=== PATIENT | male | born 2000 | race Two or more races ===

== ENCOUNTER 2020-08-30 12:17 | Outpatient (REF) | payer MEDICAID, SELFPAY | END 2020-08-30 12:18 | disposition home or self-care (01) | LOC: HO.LAB 12:17 | PROVIDERS: Visit Provider Internal Medicine | DX: Z20.828 Contact with and (suspected) exposure to other viral communicable diseases (principal) | CPT/HCPCS: 87635 ==

== ENCOUNTER 2021-11-28 07:40 | Outpatient (REF) | payer MEDICAID, SELFPAY ==
[2021-11-28 08:15] LABS: Binax Internal Control QC Valid; Binax Now Covid-19 Ag Negative (Negative)
== END 2021-11-28 07:41 | disposition home or self-care (01) ==
LOC: HO.LAB 07:40
PROVIDERS: Visit Provider Internal Medicine
DX: Z20.822 Contact with and (suspected) exposure to COVID-19 (principal)
CPT/HCPCS: C9803

== ENCOUNTER 2022-03-22 11:32 | Emergency (ER) | payer OTHER, SELFPAY ==
[2022-03-22 12:49] VITALS: BP 138/85; PULSE 83; RESP 18; TEMP 36.5; O2SAT 98; BMI 21.1
[2022-03-22 13:59] LABS: COVID-19 Test Negative (Negative); IDNOW Serial# 16C4AD1C; Influenza A Positive (Negative); Influenza B2 Negative (Negative)
--- NOTE | 2022-03-22 15:34 | ED.URI ---
HPI - URI/Sore Throat General Chief Complaint: Upper Respiratory Symptoms Stated Complaint: FLU SYMPTONS Time Seen by Provider: 03/22/22 15:33 Source: patient Mode of arrival: ambulatory Limitations: no limitations History of Present Illness HPI Narrative: 21 y/o male presents to the ER with 3 days of nausea, vomiting, body aches, decreased PO intake and headaches. He also reports fevers at home. His girlfriend and baby at home have also been sick. He vomited once yesterday, none today, he is tolerating p.o.. He reports body aches and pain all over his body when he went to get out of bed this morning. He denies any shortness of breath or chest pain. No abdominal pain. MD elicited complaint: fever and other (N/V and body aches) Onset (ago): day(s) (3) Consistency: constant Description of mucous: clear Able to tolerate fluids by mouth: Yes Exacerbating factors: nothing Relieving factors: nothing Associated symptoms: fever, chills, myalgias, headache, nasal congestion, cough, nausea and vomiting Treatments prior to arrival: none Related Data Allergies Allergy/AdvReac Type Severity Reaction Status Date / Time amoxicillin [AMOXICILLIN] Allergy Unknown RASH, hives Unverified 07/25/20 16:53 Review of Systems Review of Systems: Constitutional: + Fever, No Chills ENT/Mouth: + sore throat, No Rhinorrhea, No Swallowing Difficulty Cardiovascular: No Chest Pain, No SOB Respiratory: No Cough, No Sputum, No Wheezing, No dyspnea Gastrointestinal: + Nausea, + Vomiting, No Diarrhea, No abdominal Pain Musculoskeletal: No joint pain, + Myalgias Skin: No Skin Lesions, No rash Neuro: No Weakness, No Numbness, No Dizziness, + Headache Heme/Lymph: No Bruising, No Lymphadenopathy PMFSH Social History Social History Advance Directives: No Advance Directives Information Provided: No Physical Exam Vital Signs: Vital Signs: Last Vital Signs Temp 97.7 F 03/22/22 12:49 Pulse 83 03/22/22 12:49 Resp 18 03/22/22 12:49 BP 138/85 03/22/22 12:49 Pulse Ox 98 03/22/22 12:49 BMI result Body Mass Index 21.1 Appearance: Alert. Oriented X3. No acute distress. Eyes: Pupils equal, round and reactive to light. ENT: Pharynx normal. Tonsils are normal in appearance without exudate or swelling. Neck: Normal inspection. Neck supple. CVS: Normal heart rate and rhythm. Pulses normal. Respiratory: No respiratory distress. Breath sounds normal. Abdomen: Soft and nontender. +BS x4 Skin: Skin warm and dry. Normal skin color. Normal skin turgor. No rashes. Extremities: No lower extremity edema. Neuro: Oriented X 3. Grossly normal, nonfocal Course Course Course Narrative: 21 y/o male presents to the ER with 3 days of feeling unwell. Body aches, intermittent fevers, s/p N/V yesterday now tolerating PO. VS normal and exam is unremarkable. Influenza A+. Does not qualify for tamiflu. Discussed supportive care and return precautions. Stable to d/c. MDM - URI/Sore Throat Lab Data Labs: Lab Results 03/22/22 03/22/22 Range/Units 13:15 13:15 COVID-19 ([facility]) Negative (Negative) COVID-19 Clin Com See Note Influenza Type A ([facility]ARMIN) Positive A (Negative) Influenza Type B (SHARMIN) Negative (Negative) Influenza A & B Note See Note Critical Care Time Critical Care Time Critical Care Time: No Discharge Plan Discharge Clinical Impression: Influenza Patient Disposition: Home, Self-Care Instructions: Influenza (DC) Additional Instructions: You were found to be Influenza A POSITIVE today. Your exam and oxygen levels were normal. Treatment is supportive care Rest. Drink plenty of fluids. Do not go out in public while you are not feeling well. Take over the counter cold/flu medications as needed for your symptoms. Take Tylenol and/or Motrin as needed for fevers and body aches. Start Mucinex 1200 mg two times per day. Follow up with your doctor as needed. If you develop new or worsening symptoms call 911 or come back to the ER for further evaluation. Stand Alone Forms: Work/School Release Interventions: ED Discharge Assessment Last Done: 03/22/22 15:56 Discharge Date/Time: 03/22/22 15:56
== END 2022-03-22 15:56 | disposition home or self-care (01) ==
PROVIDERS: Emergency Provider Emergency Medicine; PCP Nurse Practitioner Primary Care
DX: J10.1 Influenza due to other identified influenza virus with other respiratory manifestations (principal); Z20.822 Contact with and (suspected) exposure to COVID-19
CPT/HCPCS: 87502; 87635; 99283

== ENCOUNTER 2023-02-10 14:39 | Emergency (ER) | payer OTHER, SELFPAY ==
[2023-02-10 15:22] VITALS: BP 118/67; PULSE 79; RESP 18; TEMP 36.6; O2SAT 99; BMI 21.6
--- NOTE | 2023-02-10 15:22 | ED.BACK ---
HPI - Back Pain/Injury General Chief Complaint: Back Pain/Injury Stated Complaint: lower back pain Time Seen by Provider: 02/10/23 15:31 Source: patient Mode of arrival: ambulatory Limitations: no limitations History of Present Illness HPI Narrative: 22 y/o male presents to the ER for evaluation of lower back pain that that started yesterday after work. He works at [employer], cannot recall lifting anything heavy or doing anything out of the ordinary. He states the pain is sharp, 8/10 and worse with movements. It is across his entire low back, no radiation of the pain. No LE weakness, numbness or tingling. No urinary symptoms or incontinence. No bowel issues. No fever or chills and no hx IVDA. He has not taken any medications for the pain. MD elicited complaint: back pain Timing: constant Severity: severe Pain scale (0-10): 8 Similar Symptoms Previously: No Quality: sharp Location: right lower back and left lower back Radiation: none Exacerbating factors: movement Relieving factors: immobilization and supine Context: unknown Associated symptoms: denies other symptoms Work related injury: Yes Related Data Previous Rx's Medication Instructions Recorded cyclobenzaprine 10 mg tablet 10 mg PO TID PRN muscle spasm #14 02/10/23 tabs ibuprofen 600 mg tablet 600 mg PO Q8H PRN pain #14 tabs 02/10/23 lidocaine 5 % topical patch 1 patch topical DAILY #15 ea 02/10/23 Allergies Allergy/AdvReac Type Severity Reaction Status Date / Time amoxicillin [AMOXICILLIN] Allergy Unknown RASH, hives Verified 02/10/23 15:25 Review of Systems Review of Systems: Yes all other systems are reviewed and are negative Physical Exam Vital Signs: Vital Signs: Last Vital Signs Temp 98 F 02/10/23 15:22 Pulse 79 02/10/23 15:22 Resp 18 02/10/23 15:22 BP 118/67 02/10/23 15:22 Pulse Ox 99 02/10/23 15:22 O2 Del Method Room Air 02/10/23 15:22 BMI result Body Mass Index 21.6 Appearance: Alert. Oriented X3. No acute distress. HEENT: normal inspection CVS: Normal heart rate and rhythm. Pulses normal. Respiratory: No respiratory distress. Skin: Skin warm and dry. Normal skin color. Normal skin turgor. No rashes. Back: normal inspection. tenderness of the bilateral soft tissues of the lumbar area, no midline tenderness. no CVA tenderness. limited rotation of the spine due to pain Extremities: normal inspection and normal ROM x4 Neuro: Oriented X 3. No motor deficit. No sensory deficit. Steady gait Medications Administered Discontinued Medications Generic Name Dose Route Start Last Admin Trade Name Fanny PRN Reason Stop Dose Admin Acetaminophen 975 mg 02/10/23 15:26 02/10/23 15:45 Acetaminophen 325 Mg Tablet PO 02/10/23 15:27 975 mg ONCE ONE Administration Ketorolac Tromethamine 30 mg 02/10/23 15:26 02/10/23 15:46 Ketorolac Tromethamine 30 Mg/Ml Vial IM 02/10/23 15:27 30 mg ONCE ONE Administration Lidocaine 1 patch 02/10/23 15:26 02/10/23 15:46 Lidocaine 4 % Patch Adh..Patch TRANSDERMA 02/10/23 15:27 1 patch ONCE ONE Administration Protocol Medical Decision Making Medical Decision Making MDM Narrative: 22 yo male presenting to the ER for evaluation of low back pain, nontraumatic in nature. Exam c/w soft tissue tenderness only. most likely muscle strain and spasm. no red flag symptoms of low back pain. will treat with muscle relaxer, NSAID and lidoderm. stable for d/c home. Differential Diagnosis Differential Diagnoses: The differential diagnosis associated with the presentation includes Inflammatory disorders, malignancy, trauma, osteoporosis, nerve root compression, radiculopathy, plexopathy, degenerative disc disease, disc herniation, spinal stenosis, sacroiliac joint dysfunction, facet joint injury, and less likely infection?like abscess or diskitis External Record Review External record reviewed: Prior outpatient labs Tests considered The following testing was considered but not selected: XR considered but not performed given no trauma and no midline tenderness Prescription Management I considered prescription management with: Pain Medication Critical Care Time Critical Care Time Critical Care Time: No Discharge Plan Discharge Clinical Impression: Low back pain Patient Disposition: Home, Self-Care Instructions: Low Back Strain (ED), Lower Back Exercises (ED) Additional Instructions: Your pain is most likely due to muscle strain and spasm. No bending, lifting or twisting. Use ice several times per day for 20 minutes at a time for the next 48 hours and then change to heat. Take medications as prescribed to help with pain and discomfort. Follow up with your Primary Care Doctor this week. If your pain worsens, if you develop new numbness, tingling, weakness, loss of function or incontinence call 911 or come back to the ER right away for evaluation. Prescriptions: New cyclobenzaprine 10 mg tablet 10 mg PO TID PRN (Reason: muscle spasm) Qty: 14 0RF ibuprofen 600 mg tablet 600 mg PO Q8H PRN (Reason: pain) Qty: 14 0RF lidocaine 5 % adhesive patch,medicated 1 patch topical DAILY Qty: 15 0RF Rx Instructions: leave on most painful area for up to 12 hrs Referrals: Patito Matias, PROOFREADER [Primary Care Provider] - (low back pain) Stand Alone Forms: Work/School Release
[2023-02-10] MEDS: Acetaminophen 325 MG TABLET 975 MG PO (15:45)
[2023-02-10] MEDS: Lidocaine 4 % Patch ADH..PATCH 1 PATCH TRANSDERMA (15:46)
[2023-02-10] MEDS: Ketorolac Tromethamine 30 MG/ML VIAL IM (15:46)
== END 2023-02-10 16:16 | disposition home or self-care (01) ==
PROVIDERS: Emergency Provider Emergency Medicine Emergency Medical Services; PCP Nurse Practitioner Primary Care
DX: Z04.2 Encounter for examination and observation following work accident (principal); M54.50 Low back pain, unspecified
CPT/HCPCS: 96372; 99283; 99284; J1885

== ENCOUNTER 2023-04-30 13:45 | Emergency (ER) | payer SELFPAY ==
--- NOTE | 2023-04-30 | ECG_ITS ---
Test Reason : cp Blood Pressure : / mmHG Vent. Rate : 075 BPM Atrial Rate : 075 BPM P-R Int : 164 ms QRS Dur : 100 ms QT Int : 388 ms P-R-T Axes : 077 -85 067 degrees QTc Int : 433 ms Normal sinus rhythm Left axis deviation Incomplete right bundle branch block Abnormal ECG When compared with ECG of 13-AUG-2019 07:04, No significant change was found Referred By: Generic ED Physician Electronically Signed By:RONN WILL
--- NOTE | ~2023-04-30 | XR_ITS ---
EXAMINATION: XR CHEST CLINICAL INFORMATION: Left chest pain. COMPARISON: August 14, 2019. TECHNIQUE: 2 views of the chest were obtained. FINDINGS: No significant abnormality is noted involving the heart, lungs, mediastinum, bony thorax or soft tissues. XR/XR chest 2V IMPRESSION: Normal chest PA and lateral.
[2023-04-30 14:03] VITALS: BP 126/73; PULSE 61; RESP 18; TEMP 37.2; O2SAT 99; BMI 21.1
--- NOTE | 2023-04-30 14:04 | ED_ITS ---
HPI - General Adult General Chief complaint: Chest Pain Stated complaint: chest pain Time Seen by Provider: 04/30/23 15:18 Source: patient Mode of arrival: ambulatory Limitations: no limitations History of Present Illness HPI narrative: 22 y male with history of asthma here with complaints of chest pain x 3 days wi th radiation to left shoulder and down left arm. No shortness of breath, nausea, vomiting, dizziness. + headache. Pain is constant, not exertional, not pleuritic. No leg swelling or leg pain. No recent travel or recent surgery. No history of DVT or PE Related Data Previous Rx's Medication Instructions Recorded cyclobenzaprine 10 mg tablet 10 mg PO TID PRN muscle spasm #14 02/10/23 tabs ibuprofen 600 mg tablet 600 mg PO Q8H PRN pain #14 tabs 02/10/23 lidocaine 5 % topical patch 1 patch topical DAILY #15 ea 02/10/23 Allergies Allergy/AdvReac Type Severity Reaction Status Date / Time amoxicillin [AMOXICILLIN] Allergy Unknown RASH, hives Verified 04/30/23 14:06 Review of Systems Review of Systems: Yes all other systems are reviewed and are negative Constitutional: Constitutional: Reports no additional constitutional complaints, Denies body ache(s), Denies chills, Denies fever(s), Denies headache(s) and Denies weakness Eyes: Eyes: Reports no additional eye complaints and Denies change in vision ENT: Reports system reviewed and no additional complaints, except as documented, Denies dizziness, Denies headache(s), Denies nasal congestion, Denies nasal discharge and Denies neck pain Cardiovascular: Cardiovascular: Reports no additional cardiovascular complaints, Reports chest pain, Denies leg edema and Denies dyspnea Respiratory: Respiratory: Reports no additional respiratory complaints, Denies cough and Denies dyspnea Gastrointestinal: Gastrointestinal: Reports no additional gastrointestinal co mplaints, Denies abdominal pain, Denies diarrhea, Denies nausea and Denies vomiting Genitourinary: Genitourinary: Denies urinary incontinence Musculoskeletal: Musculoskeletal: Reports no additional musculoskeletal complaints, Denies back pain, Denies arthralgias, Denies joint swelling, Denies neck pain, Denies numbness and Denies tingling Integumentary/Breasts: Skin/Breast: Reports system reviewed and no additional complaints, except as docu and Denies rash Neurologic: Reports system reviewed and no additional complaints, except as documented, Denies dizziness, Denies headache(s), Denies numbness, Denies tingling and Denies weakness PMFSH Past Medical History Attestation statement: The following information was validated with the patient. Source: old records reviewed and nursing notes reviewed Social History Social History Alcohol intake: never Smoked in Last 30 Days: No Use of substances other than those prescribed or required for medical reasons: No Advance Directives: No Advance Directives Information Provided: No Physical Exam ED Vital Signs: Vital Signs - 24 hr 04/30/23 14:03 04/30/23 15:21 Temperature 98.9 F 98.7 F Pulse Rate 61 53 Respiratory Rate 18 16 Blood Pressure 126/73 120/63 Pulse Oximetry 99 99 Oxygen Delivery Method Room Air Room Air BMI result Body Mass Index 21.1 Const General: cooperative, healthy appearing, comfortable and no acute distress Orientation/consciousness: patient oriented x3 Limitations: no limitations HENMT Head: Yes normal to inspection Ears: hearing grossly normal bilaterally Eyes General: appearance normal, both eyes and all related structures Pupils: Equal, round and reactive pupils present Neck Neck: Yes normal visual inspection Chest Chest palpation & inspection: normal inspection of the chest Resp Effort & Inspection: normal respiratory effort Auscultation: clear to auscultation bilaterally Cardio Rate: regular rate Rhythm: regular rhythm Peripheral pulses: Peripheral pulses 2+ throughout GI Inspection: Yes normal to inspection Palpation (GI): Soft to palpation and nontender Back/Spine/Pelvis Thoracic/Lumbar Spine: thoracic and lumbar spine normal to inspection Skin General skin exam: no rashes or lesions noted Neuro General: patient oriented x3 and moves all extremities Cranial nerves: Yes Equal, round and reactive pupils present Cognition (Neuro): normal cognition Extrem General: Yes normal to inspection, Yes no pedal edema and Yes no calf tenderness Course Course Course Narrative: RME performed by Paula Junior PA-C. Patient is a 22 year old assigned male at presenting to the emergency department with left sided chest pain. Labs and imaging ordered. Patient placed back in the waiting room pending room availability and results. Reevaluation(s) Reevaluation #1: Labs are unremarkable. EKG shows no ischemic changes. Chest x-ray shows no acute finding. Plan for discharge home with follow-up with patient's primary care outpatient. Reviewed worrisome signs and symptoms of when to return to the emergency room. Comfortable plan for discharge home. Medications Administered Discontinued Medications Generic Name Dose Route Start Last Admin Trade Name Fanny PRN Reason Stop Dose Admin Ibuprofen 600 mg 04/30/23 15:54 04/30/23 16:00 Ibuprofen 600 Mg Tablet PO 04/30/23 15:55 600 mg ONCE ONE Administration Medical Decision Making Medical Decision Making [facility] Narrative: This is a 22-year-old male with history of asthma who presents the ER with 3 days of chest pain which radiates to the left shoulder and down the left arm which is constant in nature, not exertional, not pleuritic with no other associated symptoms. Exam is benign Will check labs, EKG, chest X-ray Differential Diagnosis Differential Diagnoses: The differential diagnosis associated with the presentation includes ACS-low concern for ACS with symptoms for 3 days with a negative troponin and EKG. Heart score 0 PE-low concern for PE. Perc is 0 GERD Anxiety Pneumothorax Aortic dissection-low concern for dissection with gradual onset of symptoms over the last 3 days Lab Data [facility] Lab Attestation statement: I reviewed the patient's lab results. 04/30/23 15:08 04/30/23 15:08 Labs: Lab Results 04/30/23 04/30/23 04/30/23 Range/Units 15:08 15:08 15:08 WBC 7.0 (4.8-10.8) X10*3/uL RBC 5.42 (4.60-5.80) X10*6/uL Hgb 16.6 (14.0-18.0) g/dl Hct 48.0 (42.0-52.0) % MCV 88.6 (80.0-98.0) fL MCH 30.6 (27.0-33.0) pg MCHC 34.6 (31.0-36.0) g/dl RDW 11.9 (11.0-16.0) % Plt Count 225 (160-400) X10*3/uL MPV 9.6 (9.4-12.4) fL Immature Gran % (Auto) 0.4 (0.0-0.4) % Neut % (Auto) 59.8 (45-73) % Lymph % (Auto) 30.0 (20-40) % [place] % (Auto) 8.4 (2-11) % Eos % (Auto) 0.7 (0-4) % Baso % (Auto) 0.7 (0-2) % Lymph # (Auto) 2.1 (1.2-4.9) X10*3/uL [place] # (Auto) 0.6 (0.1-1.2) X10*3/uL Eos # (Auto) 0.1 (0.0-0.4) X10*3/uL Baso # (Auto) 0.1 (0.0-0.2) X10*3/uL Abs Immat Gran (auto) 0.03 (0.00-0.03) X10*3/uL Absolute Neuts (auto) 4.2 (2.0-8.3) x10*3/uL Absolute Nucleated RBC 0.000 (0.0-0.012) X10*3/uL Nucleated RBC % (auto) 0.0 (0.0-0.2) /100WBC Sodium 140 (135-145) mmol/L Potassium 4.5 (3.3-5.1) mmol/L Chloride 103 (96-108) mmol/L Carbon Dioxide 30 H (22-29) mmol/L Anion Gap 12 (12-20) BUN 11 (9-16) mg/dL Creatinine 0.88 (0.5-1.4) mg/dL Estim Creat Clear Calc 114.0 Estimated GFR > 60 Random Glucose 104 (60-115) mg/dL Calcium 10.4 H (8.4-10.2) mg/dL Magnesium 2.1 (1.6-2.6) mg/dL Total Bilirubin 1.0 (0.0-1.0) mg/dL AST 20 (5-37) U/L ALT 6 (0-40) U/L Alkaline Phosphatase 72 (39-117) U/L Troponin I High Sens < 2.7 (<3.5-35.0) ng/L Total Protein 8.2 H (6.5-8.0) g/dL Albumin 5.0 (3.5-5.0) g/dL Independent Interpretation I performed an independent interpretation of an: EKG and Plain X-Ray Interpretation: I indepedentely reviewed the EKG which shows normal sinus rhythm with a rate of 75, normal CO, normal QRS, normal QT Radiology Impression Discussion of test interpretation with radiology: I have reviewed the radiologist's reading. Radiologist Impression: [id number] [place] [address] XRay Report Signed Patient: Emilio Still Jr MR#: [id number] : 2000 Acct:[id number] Age/Sex: 22 / M ADM Date: 04/30/23 Loc: .ED Attending Dr: Ordering Physician: Paula Junior Date of Service: 04/30/23 Procedure(s): XR chest 2V Accession Number(s): [id number] cc: Paula Junior~ EXAMINATION: XR CHEST CLINICAL INFORMATION: Left chest pain. COMPARISON: August 14, 2019. TECHNIQUE: 2 views of the chest were obtained. FINDINGS: No significant abnormality is noted involving the heart, lungs, mediastinum, bony thorax or soft tissues. XR/XR chest 2V IMPRESSION: Normal chest PA and lateral. Discharge Plan Discharge Clinical Impression: Chest pain Patient Disposition: Home, Self-Care Instructions: Chest Pain (DC) Additional Instructions: Your lab work, EKG and chest x-ray are reassuring today. Please follow-up with your primary care doctor outpatient. Please return for any worsening symptoms. Please take Motrin or Tylenol for pain as needed Prescriptions: No Action cyclobenzaprine 10 mg tablet 10 mg PO TID PRN (Reason: muscle spasm) Qty: 14 0RF ibuprofen 600 mg tablet 600 mg PO Q8H PRN (Reason: pain) Qty: 14 0RF lidocaine 5 % adhesive patch,medicated 1 patch topical DAILY Qty: 15 0RF Rx Instructions: leave on most painful area for up to 12 hrs Referrals: Physician,None [Primary Care Provider] - Stand Alone Forms: Work/School Release Interventions: ED Discharge Assessment Last Done: 04/30/23 16:41 Discharge Date/Time: 04/30/23 16:41
[2023-04-30 15:11] LABS: MANUAL DIFF FLAG NO
[2023-04-30 15:15] LABS: Basophils Absolute Auto 0.1 X10*3/uL (0.0-0.2); Basophils Percent Auto 0.7 % (0-2); Eosinophils Absolute Auto 0.1 X10*3/uL (0.0-0.4); Eosinophils Percent Auto 0.7 % (0-4); Hemoglobin 16.6 g/dl (14.0-18.0); Imm Gran Abs Auto 0.03 X10*3/uL (0.00-0.03); Imm Gran Pct Auto 0.4 % (0.0-0.4); Lymphocytes Absolute Auto 2.1 X10*3/uL (1.2-4.9); Mean Corpuscular HGB Conc 34.6 g/dl (31.0-36.0); Mean Corpuscular Hemoglobin 30.6 pg (27.0-33.0); Mean Corpuscular Volume 88.6 fL (80.0-98.0); Mean Platelet Volume 9.6 fL (9.4-12.4); Monocytes Absolute Auto 0.6 X10*3/uL (0.1-1.2); Monocytes Percent Auto 8.4 % (2-11); Neutrophils Absolute Auto 4.2 x10*3/uL (2.0-8.3); Neutrophils Percent Auto 59.8 % (45-73); Platelet Count 225 X10*3/uL (160-400); Red Blood Count 5.42 X10*6/uL (4.60-5.80); Red Cell Distribution Width 11.9 % (11.0-16.0)
[2023-04-30 15:21] VITALS: BP 120/63; PULSE 53; RESP 16; TEMP 37.1; O2SAT 99
[2023-04-30 15:30] LABS: Alanine Aminotransferase 6 U/L (0-40); Alkaline Phosphatase 72 U/L (39-117); Anion Gap 12 (12-20); Aspartate Amino Transferase 20 U/L (5-37); Blood Urea Nitrogen 11 mg/dL (9-16); Calcium 10.4 mg/dL (8.4-10.2); Carbon Dioxide 30 mmol/L (22-29); Chloride 103 mmol/L (96-108); Estimated Glomerular Filt Rate > 60; Glucose Random 104 mg/dL (60-115); Magnesium 2.1 mg/dL (1.6-2.6); Potassium 4.5 mmol/L (3.3-5.1); Sodium 140 mmol/L (135-145); Total Protein 8.2 g/dL (6.5-8.0)
[2023-04-30 15:50] LABS: Troponin-I High Sensitivity < 2.7 ng/L (<3.5-35.0)
[2023-04-30] MEDS: Ibuprofen 600 MG TABLET PO (16:00)
== END 2023-04-30 16:41 | disposition home or self-care (01) ==
PROVIDERS: Physician Assistant Medical; Emergency Provider Emergency Medicine
DX: R07.89 Other chest pain (principal); Z79.899 Other long term (current) drug therapy
CPT/HCPCS: 36415; 71046; 80053; 83735; 84484; 85025; 93005; 99283; 99285

== ENCOUNTER 2023-05-24 13:55 | Emergency (ER) | payer SELFPAY ==
[2023-05-24 14:07] VITALS: BP 116/64; PULSE 84; O2SAT 98
[2023-05-24 15:10] VITALS: BP 108/60; PULSE 60; RESP 16; TEMP 37.2; O2SAT 99; BMI 21.9
--- NOTE | 2023-05-24 15:10 | ED.GENADULT ---
HPI - General Adult General Chief complaint: Abdominal Pain Stated complaint: L FLANK PAIN Related Data Previous Rx's Medication Instructions Recorded cyclobenzaprine 10 mg tablet 10 mg PO TID PRN muscle spasm #14 02/10/23 tabs ibuprofen 600 mg tablet 600 mg PO Q8H PRN pain #14 tabs 02/10/23 lidocaine 5 % topical patch 1 patch topical DAILY #15 ea 02/10/23 Allergies Allergy/AdvReac Type Severity Reaction Status Date / Time amoxicillin [AMOXICILLIN] Allergy Unknown RASH, hives Verified 05/24/23 15:10 [facility] Social History Social History Alcohol intake: never Advance Directives: No Advance Directives Information Provided: No Physical Exam ED Vital Signs: BMI result Body Mass Index 21.9 Course Course Course Narrative: This is an RME: Additional HPI, ROS, PE not included below will be deferred to primary provider. This is a [id number]-male presenting to the ER with a complaint of left sided back pain x 3 days. No hematuria. No fevers, chills, urinary symptoms. No nausea, vomiting. No hx of kidney stones. Took tylenol with little relief. +left lumbar paraspinous muscle ttp. No abdominal pain. Plan: Labs and UA ordered. Reevaluation(s) Reevaluation #1: Patient eloped prior to by primary provider. Discharge Plan Discharge Clinical Impression: Abdominal pain Patient Disposition: Elopement Prescriptions: No Action cyclobenzaprine 10 mg tablet 10 mg PO TID PRN (Reason: muscle spasm) Qty: 14 0RF ibuprofen 600 mg tablet 600 mg PO Q8H PRN (Reason: pain) Qty: 14 0RF lidocaine 5 % adhesive patch,medicated 1 patch topical DAILY Qty: 15 0RF Rx Instructions: leave on most painful area for up to 12 hrs Interventions: ED Discharge Assessment Last Done: 05/24/23 16:50 Discharge Date/Time: 05/24/23 16:50
== END 2023-05-24 16:50 | disposition left against medical advice (07) ==
PROVIDERS: Emergency Provider Emergency Medicine
DX: R10.9 Unspecified abdominal pain (principal)
CPT/HCPCS: 99282

== ENCOUNTER 2023-12-13 14:36 | Emergency (ER) | payer MEDICAID, SELFPAY | END 2023-12-13 18:14 | disposition left against medical advice (07) | PROVIDERS: Emergency Provider Emergency Medicine | DX: R10.9 Unspecified abdominal pain (principal) ==

== ENCOUNTER 2025-04-09 15:25 | Emergency (ER) | payer MEDICAID, SELFPAY ==
[2025-04-09 15:39] VITALS: BP 112/75; PULSE 110; RESP 18; TEMP 37.8; O2SAT 98; BMI 21.7
--- NOTE | 2025-04-09 16:01 | ED.GENADULT ---
HPI - General Adult General Chief complaint: General Medical Stated complaint: body aches,fever,chills Time Seen by Provider: 04/09/25 19:50 Source: patient Mode of arrival: ambulatory Limitations: no limitations History of Present Illness ED Provider: Maria Teresa Granado NP HPI narrative: Patient is a 24-year-old male who presents emergency department for evaluation. Reports that he awoke today feeling unwell with body aches, nasal congestion, intermittent shortness of breath, chills, tactile fevers. Did not take any OTC medications at home. Did not trial any conservative treatment. Denies any known sick contacts. Denies headache, neck pain, neck stiffness, chest pain, abdominal pain, numbness or tingling of the extremities Related Data Previous Rx's ?Medication ?Instructions ?Recorded cyclobenzaprine 10 mg tablet 10 mg PO TID PRN muscle spasm #14 02/10/23 tabs ibuprofen 600 mg tablet 600 mg PO Q8H PRN pain #14 tabs 02/10/23 lidocaine 5 % topical patch 1 patch topical DAILY #15 ea 02/10/23 Allergies Allergy/AdvReac Type Severity Reaction Status Date / Time amoxicillin [AMOXICILLIN] Allergy Unknown RASH, hives Verified 04/09/25 15:44 Review of Systems Review of Systems: Yes all other systems are reviewed and are negative PMFSH Past Medical History Attestation statement: The following information was validated with the patient. Source: old records reviewed Social History Social History Alcohol intake: never Advance Directives: No Advance Directives Information Provided: Yes Physical Exam ED Vital Signs: Vital Signs - 24 hr 04/09/25 21:05 Temperature 97.6 F Pulse Rate 90 Respiratory Rate 18 Blood Pressure 118/78 Pulse Oximetry 99 Oxygen Delivery Method Room Air BMI result Body Mass Index 21.7 Appearance: Alert.?Oriented to person, place and time. No acute distress.?Normal affect. Eyes: Pupils equal, round and reactive to light.? ENT: TM normal bilaterally. Pharynx normal.?? Neck: Normal inspection.? Neck supple.??No cervical adenopathy CVS: Heart sounds normal. Normal heart rate and rhythm.? Pulses normal.?? Respiratory: No respiratory distress.? Lung sounds clear to auscultation bilaterally?? Abdomen: Soft and non-tender. Normoactive bowel sounds. Skin: Skin warm and dry.? Normal skin color.? ? Extremities: No lower extremity edema.? Neuro: Moves all extremities spontaneously. Sensation intact bilaterally. No motor deficits. Ambulates with normal steady gait. Medications Administered Discontinued Medications Generic Name Dose Route Start Last Admin Trade Name Johnathanq PRN Reason Stop Dose Admin Acetaminophen 975 mg 04/09/25 16:11 04/09/25 16:15 Acetaminophen 325 Mg Tablet PO 04/09/25 16:12 975 mg ONCE ONE Administration Medical Decision Making Medical Decision Making [facility] Narrative: Patient is a 24 old male with past medical history of asthma, presenting for evaluation of upper respiratory symptoms. COVID-19 /influenza/ RSV testing negative. Group a strep testing is negative. Exam findings without evidence to suggest RPA/ [facility]. At this time history and physical exam not consistent with ACS/PE/pneumonia. Well-appearing, nontoxic, afebrile, no tachycardia or tachypnea/hypoxia. Speaking clear full sentences, ambulatory with steady gait. Discussed conservative treatment including rest, hydration, Tylenol/ibuprofen as needed for fever and body aches, saline nasal spray, humidifier, [id number] cold medication. Advised to follow-up with primary care provider as needed, discussed reasons to return back to the emergency department. All questions were answered. Patient discharged home in stable condition. Differential Diagnosis Differential Diagnoses: The differential diagnosis associated with the presentation includes ( See narrative above) Admission/Observation Consideration of admission/observation: Escalation of care including admission/observation considered ( see narrative above) Lab Data [facility] Lab Attestation statement: I reviewed the patient's lab results. ( see narrative above) Labs: Lab Results 04/09/25 Range/Units 18:03 Influenza Type A (PCR) NEGATIVE (Negative) Influenza Type B (PCR) NEGATIVE (Negative) RSV RNA Qual (PCR) NEGATIVE (Negative) SARS-CoV-2 RNA (RT-PCR) NEGATIVE (Negative) S. pyogenes GrpA SHARMIN Negative (Negative) External Record Review External record reviewed: Outpatient record Prescription Management I considered prescription management with: Pain Medication ( acetaminophen/ibuprofen) Discharge Plan Discharge Clinical Impression: Upper respiratory infection Patient Disposition: Home, Self-Care Instructions: Upper Respiratory Infection (ED) Additional Instructions: Be sure to rest, stay well hydrated drinking plenty of fluids, eat small frequent meals. Tylenol/ibuprofen can be used as needed for fever/pain. [id number] cold medications may be helpful as well for symptoms. Saline nasal spray, humidifier may be helpful for nasal congestion. You may return to the emergency department with any new or worsening symptoms or concerns. Follow-up with your primary care provider as needed. Should remain out of school/ work until symptoms have resolved and have been without a fever for 24 hours without the use of Tylenol or ibuprofen. Prescriptions: No Action cyclobenzaprine 10 mg tablet 10 mg PO TID PRN (Reason: muscle spasm) Qty: 14 0RF ibuprofen 600 mg tablet 600 mg PO Q8H PRN (Reason: pain) Qty: 14 0RF lidocaine 5 % adhesive patch,medicated 1 patch topical DAILY Qty: 15 0RF Rx Instructions: leave on most painful area for up to 12 hrs Referrals: [facility] [Primary Care Provider] - Interventions: ED Discharge Assessment Last Done: 04/09/25 21:05 Discharge Date/Time: 04/09/25 21:10 Print Language: Ivorian
[2025-04-09] MEDS: Acetaminophen 325 MG TABLET 975 MG PO (16:15)
[2025-04-09 18:20] LABS: IDNOW Serial# 55D5AD1C; Strep A Nucleic Acid Negative (Negative)
[2025-04-09 18:49] LABS: Influenza A PCR NEGATIVE (Negative); Influenza B PCR NEGATIVE (Negative); Resp Syncy Virus RNA Qual PCR NEGATIVE (Negative); SARS COV2 PCR INHOUSE NEGATIVE (Negative)
[2025-04-09 21:05] VITALS: BP 118/78; PULSE 90; RESP 18; TEMP 36.4; O2SAT 99
--- NOTE | 2025-04-09 21:05 | PC.NURSE ---
states symptoms are improved. ambulates steadily. states he wants to go home.
== END 2025-04-09 21:10 | disposition home or self-care (01) ==
PROVIDERS: Physician Assistant Medical; Emergency Provider Emergency Medicine
DX: J06.9 Acute upper respiratory infection, unspecified (principal); M79.10 Myalgia, unspecified site; R50.9 Fever, unspecified; Z03.818 Encounter for observation for suspected exposure to other biological agents ruled out
CPT/HCPCS: 0241U; 87651; 99283